=== PATIENT | male | born 1950 | race Two or more races ===

== ENCOUNTER 2022-09-24 07:56 | Outpatient (CLI) | payer OTHER | END 2022-09-24 08:07 | disposition home or self-care (01) | LOC: NUCLEAR 07:56 | PROVIDERS: ATTEND Urology | DX: I11.9 Hypertensive heart disease without heart failure (principal) | CPT/HCPCS: 78452; 93017; A9500; J0153 ==

== ENCOUNTER 2022-10-10 09:16 | Outpatient (CLI) | payer OTHER | END 2022-10-10 09:42 | disposition home or self-care (01) | LOC: LAB 09:16 | PROVIDERS: ATTEND Urology | DX: C64.2 Malignant neoplasm of left kidney, except renal pelvis (principal); N39.0 Urinary tract infection, site not specified ==

== ENCOUNTER 2022-10-15 08:55 | Outpatient (CLI) | payer OTHER ==
[2022-10-16] MEDS ORDERED: OMEPRAZOLE40 MG PO (13:43)
[2022-10-16] MEDS ORDERED: SYNTHROID50 MCG PO (13:43)
[2022-10-16] MEDS ORDERED: LASIX20 MG PO (13:43)
[2022-10-16] MEDS ORDERED: AMIODARONE HCL100 MG PO (13:44)
[2022-10-16] MEDS ORDERED: ENTRESTO 49 MG1 EACH PO (13:44)
[2022-10-16] MEDS ORDERED: CARVEDILOL25 MG (13:44)
[2022-10-16] MEDS ORDERED: EPLERENONE50 MG PO (13:44)
[2022-10-16] MEDS ORDERED: CRESTOR20 MG PO (13:45)
[2022-10-16] MEDS ORDERED: XARELTO20 MG PO (13:45)
== END 2022-10-15 08:58 | disposition home or self-care (01) ==
LOC: NUCLEAR 08:55
PROVIDERS: ATTEND Urology
DX: C64.2 Malignant neoplasm of left kidney, except renal pelvis (principal)

== ENCOUNTER 2022-10-31 05:45 | Inpatient (IN) | payer OTHER ==
[~2022-10-31] VITALS: Ht 180.3 cm; Wt 108.9 kg
[~2022-10-31 05:45] MED LIST: AMIODARONE HCL100 MG PO; CARVEDILOL25 MG; CRESTOR20 MG PO; ENTRESTO 49 MG1 EACH PO; EPLERENONE50 MG PO; LASIX20 MG PO; OMEPRAZOLE40 MG PO; SYNTHROID50 MCG PO; XARELTO20 MG PO
[2022-10-31] MEDS ORDERED: DOXAZOSIN MESYLA4 MG (07:56)
[2022-10-31] MEDS ORDERED: TAMSULOSIN HCL0.4 MG (07:56)
[2022-10-31 21:10] LABS: HEMATOCRIT 35.6 % (39.0-48.0); HEMOGLOBIN 11.7 g/dL (13-16.00); MEAN CORPUSCULAR HEMOGLOBIN 27.9 pg (27.00-32.0); MEAN CORPUSCULAR HGB CONC 32.8 g/dl (32.0-36.0); PLATELET COUNT 168 K/uL (150-450); RED BLOOD COUNT 4.19 M/uL (4.00-6.00); RED CELL DISTRIBUTION WIDTH 14.7 % (11.5-14.5)
[2022-11-01 07:07] LABS: HEMATOCRIT 34.2 % (39.0-48.0); HEMOGLOBIN 11.1 g/dL (13-16.00); MEAN CELL VOLUME 86.2 fL (80.0-100.00); MEAN CORPUSCULAR HEMOGLOBIN 27.9 pg (27.00-32.0); MEAN CORPUSCULAR HGB CONC 32.4 g/dl (32.0-36.0); PLATELET COUNT 170 K/uL (150-450); RED BLOOD COUNT 3.97 M/uL (4.00-6.00); RED CELL DISTRIBUTION WIDTH 14.5 % (11.5-14.5)
[2022-11-01 07:31] LABS: CALCIUM 7.8 mg/dL (8.5-10.1); CREATININE SERUM 1.38 mg/dL (0.70-1.30); GFR 50.94; POTASSIUM 3.39 mEq/L (3.5-5.1)
[2022-11-02 06:36] LABS: HEMATOCRIT 31.7 % (39.0-48.0); HEMOGLOBIN 10.8 g/dL (13-16.00); MEAN CELL VOLUME 84.8 fL (80.0-100.00); MEAN CORPUSCULAR HEMOGLOBIN 29.1 pg (27.00-32.0); MEAN CORPUSCULAR HGB CONC 34.3 g/dl (32.0-36.0); PLATELET COUNT 178 K/uL (150-450); RED BLOOD COUNT 3.73 M/uL (4.00-6.00); RED CELL DISTRIBUTION WIDTH 14.8 % (11.5-14.5)
[2022-11-02 06:49] LABS: CREATININE SERUM 1.4 mg/dL (0.70-1.30); GFR 50.1; POTASSIUM 3.73 mEq/L (3.5-5.1)
== END 2022-11-03 07:47 | disposition home or self-care (01) | DRG 658 ==
LOC: O/R 05:45 → SURH 15:14
PROVIDERS: ADMIT Urology; ATTEND Urology
PROC: 0TB74ZZ Excision of Left Ureter, Percutaneous Endoscopic Approach (ICD-10-PCS; 2022-10-31)
PROC: 0GB24ZZ Excision of Left Adrenal Gland, Percutaneous Endoscopic Approach (ICD-10-PCS; 2022-10-31)
PROC: 0TT14ZZ Resection of Left Kidney, Percutaneous Endoscopic Approach (ICD-10-PCS; principal; 2022-10-31 07:00)
DX: C64.2 Malignant neoplasm of left kidney, except renal pelvis (principal)

== ENCOUNTER 2022-11-06 10:28 | Outpatient (CLI) | payer OTHER ==
[~2022-11-06 10:28] MED LIST changes: +DOXAZOSIN MESYLA4 MG; +TAMSULOSIN HCL0.4 MG
== END 2022-11-06 10:45 | disposition home or self-care (01) ==
LOC: LAB 10:28
PROVIDERS: ATTEND Urology
DX: D62 Acute posthemorrhagic anemia (principal); E78.9 Disorder of lipoprotein metabolism, unspecified

== ENCOUNTER 2023-01-31 08:05 | Outpatient (CLI) | payer OTHER ==
[2023-01-31 09:56] LABS: URINE PROT QUANT 24HR 12.9 MG/DL
[2023-01-31 10:17] LABS: URINE PROT QUANT 24 HR 348.3 MG/24HR (42-225)
[2023-01-31 10:19] LABS: CREATINE CLEARANCE 43.7 ML/MIN (97-137); CREATININE SERUM 1.75 mg/dL (0.8-1.3)
== END 2023-01-31 15:07 | disposition home or self-care (01) ==
LOC: LAB 08:05
PROVIDERS: ATTEND Urology
DX: C64.2 Malignant neoplasm of left kidney, except renal pelvis (principal)